=== PATIENT | female | born 1955 | race Caucasian/White ===

== ENCOUNTER 2020-06-01 07:48 | Outpatient (CLI) | payer OTHER, SELFPAY ==
--- NOTE | ~2020-06-01 | DEXA_ITS ---
Bone Density Report Name: Aminata Sotelo Age: 65 Sex: Female Ethnicity: White Date of : 1955 Indication: postmenopausal; parental hip fracture; height loss; Referring Provider: ANGELINA, BARRIE Study: Bone densitometry was performed. Exam Date: June 01, 2020 Accession number: [id number] Bone Density: Region BMD T-score Z-score Classification AP Spine (L1-L4) 0.975 -0.7 1.0 Normal Femoral Neck (Left) 0.641 -1.9 -0.5 Osteopenia Total Hip (Left) 0.775 -1.4 -0.3 Osteopenia Total Hip Bilateral Avg 0.767 -1.5 -0.4 Osteopenia Femoral Neck (Right) 0.683 -1.5 -0.1 Osteopenia Total Hip (Right) 0.759 -1.5 -0.4 Osteopenia World Health Organization criteria for BMD impression classify patients as: Normal (T-score at or above -1.0), Osteopenia (T-score between -1.0 and -2.5), or Osteoporosis (T-score at or below -2.5). 10-year Fracture Risk(1): Major Osteoporotic Fracture 15% Hip Fracture 1.1% Reported Risk Factors: [place] (), Neck BMD=0.641, BMI=18.2, parental fracture (1) FRAX(R) Version 3.08. Fracture probability calculated for an untreated patient. Fracture probability may be lower if the patient has received treatment. Previous Exams: Region Exam Age BMD T-score BMD Change BMD Change Date g/cm2 vs Baseline vs Previous AP Spine(L1-L4) 06/01/2020 65 0.975 -0.7 -0.117(-10.7%) -0.013(-1.3%) 03/03/2017 61 0.989 -0.5 -0.103(-9.5%)# -0.034(-3.3%)# 06/07/2014 59 1.022 -0.2 -0.069(-6.4%)# -0.069(-6.4%)# 02/06/2011 55 1.092 0.4 Total Hip(Left) 06/01/2020 65 0.775 -1.4 -0.090(-10.4%) -0.040(-4.9%)* 03/03/2017 61 0.815 -1.0 -0.050(-5.7%)# -0.015(-1.8%)# 06/07/2014 59 0.830 -0.9 -0.034(-4.0%)# -0.034(-4.0%)# 02/06/2011 55 0.864 -0.6 Total Hip(Right) 06/01/2020 65 0.759 -1.5 -0.119(-13.6%) -0.063(-7.7%)* 03/03/2017 61 0.823 -1.0 -0.056(-6.4%)# 0.008(0.9%)# 06/07/2014 59 0.815 -1.0 -0.063(-7.2%)# -0.063(-7.2%)# 02/06/2011 55 0.878 -0.5 *Denotes significance at 95% confidence level, LSC for AP Spine = 0.022 g/cm2, LSC for Total Hip = 0.027 g/cm2 Clinical Information Provided by Patient: Parent has had a hip fracture Has used the following medications: Vitamin D, Calcium Patient maximum height was 70 Menopause Age: 57 No regular weight bearing exercise Onset of menses at age 16 Number of children 3 Impression: The patient has low bone mass, based on the Left
--- NOTE | ~2020-06-01 | MM_ITS ---
EXAMINATION: MM screening gaetano BI w nitin HISTORY: Screening mammogram, family history of breast cancer in her mother and sister. TECHNIQUE: Craniocaudal and mediolateral oblique 3-D tomosynthesis images were obtained and synthetic 2-D images were generated. CAD analysis was submitted and interpreted. COMPARISON: 12/29/2018, 03/03/2017, 07/18/2015, 07/10/2015 BREAST PARENCHYMAL COMPOSITION: There are scattered areas of fibroglandular density. FINDINGS: There is no evidence of suspicious mass, calcification, or architectural distortion to sugg est malignancy in either breast. There has been no suspicious interval change. IMPRESSION: 1. No mammographic evidence of malignancy. 2. Recommend routine screening mammography in one year. BI-RADS Category 1: Negative Reviewed, dictated and finalized at location A.
== END 2020-06-01 07:49 | disposition home or self-care (01) ==
LOC: ANHIMG 07:50
PROVIDERS: PCP Internal Medicine; Visit Provider Nurse Practitioner
DX: Z12.31 Encounter for screening mammogram for malignant neoplasm of breast (principal); M85.88 Other specified disorders of bone density and structure, other site; M85.852 Other specified disorders of bone density and structure, left thigh; M85.851 Other specified disorders of bone density and structure, right thigh
CPT/HCPCS: 77063; 77067; 77080

== ENCOUNTER 2021-04-13 09:01 | Emergency (ER) | payer OTHER, SELFPAY ==
--- NOTE | 2021-04-13 09:10 | ED.FEMALEGU ---
HPI - Female Genitourinary General Chief complaint: Urogenital-Female Stated complaint: UTI Time Seen by Provider: 04/13/21 09:05 Source: patient and RN notes reviewed Limitations: no limitations History of Present Illness HPI Narrative: The patient, previously mostly healthy, presents with a shorter couple day history of urinary dysuria, and urgency. No fever, frequency, hematuria; symptoms are mild; worse with micturition like prior urinary tract infection [not irritable bladder that she has had before], unrelieved with OTC preparations like Azo. Patient advised to see prior urologist [Dr. Quesada]] , if no improvement. Related Data Home Medications Medication Instructions Recorded Confirmed diazepam 10 mg PO DIRECTED 04/13/21 04/13/21 estradiol 0.1 appful VAGINAL DIRECTED 04/13/21 04/13/21 estradiol [Imvexxy Maintenance 10 mcg VAGINAL DIRECTED 04/13/21 04/13/21 Pack] raloxifene 60 mg PO DIRECTED 04/13/21 04/13/21 Allergies Allergy/AdvReac Type Severity Reaction Status Date / Time Sulfa (Sulfonamide Allergy Unknown Rash Verified 04/13/21 09:08 Antibiotics) BANDAID AdvReac Unknown ITCHING, Uncoded 02/12/18 13:06 RASH Review of Systems Review of Systems: Narrative: General/Constitutional: No weight loss,fever Eyes: N0: Redness,discharge Ears/Nose/Throat: No: Epistaxis,ear discharge Respiratory: Denies: Hemoptysis Gastrointestinal: No Vomiting, Bleeding-rectal Skin: No Lumps, eruption Neurologic: No Focal Weakness,Sz Hematologic: Denies: Petechiae/Purpura Psychiatric: No: Suicida ideationl All Other Systems: Reviewed and Negative [facility] Family History Family History (Updated 06/13/16 @ 23:19 by DOCTOR UNKNOWN) Sibling Family history of malignant neoplasm of breast in first degree relative, Onset Age: 53 Mother Family history of malignant neoplasm of breast in first degree relative, Onset Age: 64 Grandparent Family history of throat cancer, Onset Age: 90 Social History Social History Smoking status: Never smoker Alcohol intake: current Comments At time of signature, agree with nursing past medical, surgical, social and family history. There is no relevant family history pertinent to the presenting complaint Exam Narrative: Exam Narrative: General Appearance: Well appearing, Conjunctiva clear Ears: External ear normal Nose: Normal nose Mouth/Throat: Normal appearing, Normal lips, Supple Respiratory: Airway patent, No respiratory distress Abdomen: Soft, Non-tender, No massess, No organomegaly (no rebound/ surgical signs), Musculoskeletal: Full ROM Skin: Warm, Dry Neurological: A&O x3, Normal affect Course Vital Signs Vital signs: Vital Signs Temperature 97.5 F L 04/13/21 09:13 Pulse Rate 72 04/13/21 09:13 Respiratory Rate 16 04/13/21 09:13 Blood Pressure 139/57 L 04/13/21 09:13 Pulse Oximetry 99 04/13/21 09:13 Temperature 97.5 F L 04/13/21 09:13 Pulse Rate 72 04/13/21 09:13 Respiratory Rate 16 04/13/21 09:13 Blood Pressure 139/57 L 04/13/21 09:13 Pulse Oximetry 99 04/13/21 09:13 MDM - Female Genitourinary Lab Data Labs: Urine Glucose Negative Reference Range: Negative Urine Bilirubin Negative Reference Range: Negative Urine Ketone Negative Reference Range: Negative Urine Specific Orient 1.020 Reference Range:1.001-1.035 Urine Blood Negative Reference Range: Negative * * Urine pH 6.0 Reference Range: 5.0-9.0 Urine Protein Negative
[2021-04-13 09:13] VITALS: BP 139/57; PULSE 72; RESP 16; TEMP 36.4; O2SAT 99
== END 2021-04-13 09:31 | disposition home or self-care (01) ==
PROVIDERS: Emergency Provider Emergency Medicine; PCP Internal Medicine
DX: N30.00 Acute cystitis without hematuria (principal)
CPT/HCPCS: 81003; 87086; 87186; 99213; G0463

== ENCOUNTER 2021-06-03 07:30 | Outpatient (CLI) | payer BC, SELFPAY ==
--- NOTE | ~2021-06-03 | MM_ITS ---
EXAMINATION: MM screening gaetano BI w nitin HISTORY: Screening TECHNIQUE: Craniocaudal and mediolateral oblique 3-D tomosynthesis images were obtained and synthetic 2-D images were generated. CAD analysis was submitted and interpreted. COMPARISON: Comparison to multiple prior studies sequentially, with oldest reviewed study dated 06/07. BREAST PARENCHYMAL COMPOSITION: There are scattered areas of fibroglandular density. FINDINGS: There is no evidence of suspicious mass, calcification, or architectural distortion to sugg est malignancy in either breast. There has been no suspicious interval change. IMPRESSION: 1. No mammographic evidence of malignancy. 2. Recommend routine screening mammography in one year. BI-RADS Category 1: Negative Reviewed, dictated and finalized at location A.
== END 2021-06-03 07:31 | disposition home or self-care (01) ==
LOC: ANHIMG 07:31
PROVIDERS: PCP Internal Medicine; Visit Provider Nurse Practitioner
DX: Z12.31 Encounter for screening mammogram for malignant neoplasm of breast (principal)
CPT/HCPCS: 77063; 77067

== ENCOUNTER 2022-08-26 15:08 | Outpatient (CLI) | payer MEDICARE, SELFPAY ==
--- NOTE | ~2022-08-26 | DEXA_ITS ---
Bone Density Report Name: SARAI MORLEY Age: 67 Sex: Female Ethnicity: White Date of : 1955 Indication: osteopenia; height loss; postmenopausal Referring Provider: RONALDO, DANDRE Study: Bone densitometry was performed. Exam Date: August 26, 2022 Accession number: [id number] Bone Density: Region BMD T-score Z-score Classification AP Spine(L1-L4) 0.983 -0.6 1.2 Normal Femoral Neck (Left) 0.636 -1.9 -0.4 Osteopenia Total Hip (Left) 0.748 -1.6 -0.4 Osteopenia Femoral Neck (Right) 0.664 -1.7 -0.1 Osteopenia Total Hip (Right) 0.754 -1.5 -0.3 Osteopenia Total Hip Mean 0.751 -1.6 -0.4 Osteopenia World Health Organization criteria for BMD impression classify patients as: Normal (T-score at or above -1.0), Osteopenia (T-score between -1.0 and -2.5), or Osteoporosis (T-score at or below -2.5). 10-year Fracture Risk(1): Major Osteoporotic Fracture 9.2% Hip Fracture 1.4% Reported Risk Factors: [place] (), Neck BMD=0.636, BMI=20.2 (1) FRAX(R) Version 3.08. Fracture probability calculated for an untreated patient. Fracture probability may be lower if the patient has received treatment. Previous Exams: Region Exam Age BMD T-score BMD Change BMD Change Date g/cm2 vs Baseline vs Previous AP Spine (L1-L4) 08/26/2022 67 0.983 -0.6 -0.040 (-3.9%) 0.008 (0.8%) 06/01/2020 65 0.975 -0.7 -0.047 (-4.6%) -0.013 (-1.3%) 03/03/2017 61 0.989 -0.5 -0.034 (-3.3%) -0.034 (-3.3%) 06/07/2014 59 1.022 -0.2 Total Hip(Left) 08/26/2022 67 0.748 -1.6 -0.082 (-9.9%) -0.027 (-3.4%) 06/01/2020 65 0.775 -1.4 -0.055 (-6.7%) -0.040 (-4.9%) 03/03/2017 61 0.815 -1.0 -0.015 (-1.8%) -0.015 (-1.8%) 06/07/2014 59 0.830 -0.9 Total Hip(Right) 08/26/2022 67 0.754 -1.5 -0.061 (-7.5%) -0.005 (-0.7%) 06/01/2020 65 0.759 -1.5 -0.056 (-6.8%) -0.063 (-7.7%) 03/03/2017 61 0.823 -1.0 0.008 (0.9%)# 0.008 (0.9%)# 06/07/2014 59 0.815 -1.0 *Denotes significance at 95% confidence level, LSC for AP Spine = 0.022 g/cm2, LSC for Total Hip = 0.027 g/cm2 # Denotes dissimilar scan types or analysis methods Clinical Information Provided by Patient: Has used the following medications: Vitamin D Patient maximum height was 70 Drinks caffeinated beverages Onset of menses at age 15 Number of children 3 Impression: The patient has low bone mass, based on the Left Femoral Neck T-score.
--- NOTE | ~2022-08-26 | MM_ITS ---
EXAMINATION: MM screening gaetano BI w nitin HISTORY: Screening TECHNIQUE: Craniocaudal and mediolateral oblique 3-D tomosynthesis images were obtained and synthetic 2-D images were generated. CAD analysis was submitted and interpreted. COMPARISON: Comparison to multiple prior studies sequentially, with oldest reviewed study dated 07/10. BREAST PARENCHYMAL COMPOSITION: Breast composed of scattered areas of fibroglandular density FINDINGS: There is no evidence of suspicious mass, calcification, or architectural distortion to sugg est malignancy in either breast. There has been no suspicious interval change. IMPRESSION: 1. No mammographic evidence of malignancy. 2. Recommend routine screening mammography in one year. BI-RADS Category 1: Negative Reviewed, dictated and finalized at location A.
== END 2022-08-26 15:09 | disposition home or self-care (01) ==
PROVIDERS: PCP Internal Medicine; Visit Provider Nurse Practitioner
DX: Z12.31 Encounter for screening mammogram for malignant neoplasm of breast (principal); M85.88 Other specified disorders of bone density and structure, other site; M85.852 Other specified disorders of bone density and structure, left thigh; M85.851 Other specified disorders of bone density and structure, right thigh
CPT/HCPCS: 77063; 77067; 77080

== ENCOUNTER 2022-09-01 12:52 | Outpatient (CLI) | payer MEDICARE, SELFPAY | END 2022-09-01 12:53 | disposition home or self-care (01) | LOC: ANHAUDASC 12:54 | PROVIDERS: PCP Internal Medicine; Visit Provider Internal Medicine | DX: H90.3 Sensorineural hearing loss, bilateral (principal) | CPT/HCPCS: 92557; 92567 ==

== ENCOUNTER 2022-10-28 13:33 | Inpatient (IN) | payer MEDICARE, SELFPAY ==
--- NOTE | ~2022-10-28 | XR_ITS ---
EXAMINATION: XR finger 4th RT min 2V INDICATION: Increased swelling and redness of the right fourth finger TECHNIQUE: Three views of the right fourth finger are obtained. COMPARISON: 10/29/2022 FINDINGS: Bone alignment is normal. There is no fracture. Again noted is severe erosive osteoarthriti s at the fourth distal interphalangeal joint. There is surrounding soft tissue swelling without signi ficant change. Moderate to severe erosive osteoarthritis is also seen at the fifth distal interphalan geal joint. IMPRESSION: 1. Erosive osteoarthritis, severe at the fourth distal interphalangeal joint and moderate to severe a t the fifth distal interphalangeal joint, without significant change. Reviewed, dictated and finalized at location A. 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 Erosive osteoarthritis, severe at the fourth distal interphalangeal joint an d moderate to severe at the fifth distal interphalangeal joint, without signifi cant change.
--- NOTE | ~2022-10-28 | MR_ITS ---
EXAMINATION: MR hand RT wo/w con DATE: 10/31/2022 07:21 INDICATION: Infection at the fourth distal interphalangeal joint. TECHNIQUE: Magnetic resonance imaging (MRI) of the right hand was performed without and with 13 mL Mu ltihance intravenous contrast. Sequences included axial T1-weighted FSE, axial T2-weighted FS FSE, co master T1-weighted FSE, coronal T2-weighted FS FSE, sagittal T1-weighted FSE and sagittal T2-weighted FS FSE. Precontrast axial T1-weighted FS FSE and post contrast sagittal T1-weighted FS FSE were also obtained. There is a technical error the scanner resulting in the study being halted prior to obtaini ng the axial and coronal postcontrast images and also resulting in poor fat saturation on the sagitta l postcontrast images. COMPARISON: None. FINDINGS: Bone alignment is normal. No fracture. Severe erosive osteoarthritis at the fourth and fifth distal i nterphalangeal joints with typical central erosions with gullwing configuration at the base of the fo urth and fifth distal phalanges. Additional mild osteoarthritis at the remaining interphalangeal join ts. There is focal subcutaneous edema and soft tissue swelling dorsal to the fourth distal interphala ngeal joint, superficial to the extensor digitorum longus tendon and its distal phalangeal insertion. No evident soft tissue swelling deep to the fingernail. No abscess. No evident loss of the low signa l intensity corticated margins to the bones or loss of T1 marrow fat signal to suggest osteomyelitis. No joint effusion to suggest a septic arthritis. The flexor and extensor tendons including the exten sor digitorum longus tendon to the fourth digit remain normal. This scan is the collateral ligament c omplex at the metacarpophalangeal and interphalangeal joints remain normal. IMPRESSION: 1. Nonspecific subcutaneous soft tissue swelling dorsal to the fourth distal interphalangeal joint wh ich remain superficial to the normal-appearing extensor digitorum longus tendon to the fourth digit w ithout evident abscess, joint effusion to suggest septic arthritis or marrow signal changes to sugges t ostomy myelitis. 2. Severe erosive osteoarthritis at the fourth and fifth distal interphalangeal joints. Reviewed, dictated and finalized at location A. [facility] IMPRESSION: 1. Nonspecific subcutaneous soft tissue swelling dorsal to the fourth distal in terphalangeal joint which remain superficial to the normal-appearing extensor d igitorum longus tendon to the fourth digit without evident abscess, joint effus ion to suggest septic arthritis or marrow signal changes to suggest ostomy myel itis. 2. Severe erosive osteoarthritis at the fourth and fifth distal interphalangeal joints.
--- NOTE | ~2022-10-28 | XR_ITS ---
EXAMINATION: XR finger 4th RT min 2V DATE: 10/28/2022 14:52 INDICATION: Nontraumatic pain at the right fourth distal phalanx TECHNIQUE: Dorsal palmar, lateral and 2 oblique views of the right fourth digit were obtained COMPARISON: None FINDINGS: Diffuse osteopenia. Bone alignment is normal. No fracture. Severe osteoarthritis with central erosion s consistent with erosive osteoarthritis at the fourth distal interphalangeal joint and also suggeste d at the suboptimally profiled fifth distal interphalangeal joint. Moderate osteoarthritis at the thi rd-fifth proximal interphalangeal and third distal interphalangeal joints. Mild osteoarthritis at the first and fourth metacarpophalangeal joints. Mild periarticular soft tissue swelling most prominent at the fourth distal interphalangeal joint. IMPRESSION: 1. Severe erosive osteoarthritis at the fourth distal interphalangeal joint also suggested at the fif th distal interphalangeal joint. Reviewed, dictated and finalized at location A. 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 Severe erosive osteoarthritis at the fourth distal interphalangeal joint als o suggested at the fifth distal interphalangeal joint.
[2022-10-28 13:39] VITALS: BP 144/58; PULSE 80; RESP 20; TEMP 36.7; O2SAT 97
--- NOTE | 2022-10-28 14:47 | ED.WOUNDLAC ---
HPI - Wound/Laceration General Chief Complaint: Wound/Laceration <Tania Del Toro PA-C - Last Filed: 10/28/22 17:48> Stated Complaint: right ring finger infection <OLIVERIO Sanchez Last Filed: 10/28/22 17:48> Time Seen by Provider: 10/28/22 13:56 <OLIVERIO Sanchez Last Filed: 10/28/22 17:48> Source: patient <OLIVERIO Sanchez Last Filed: 10/28/22 17:48> Mode of arrival: ambulatory <OLIVERIO Sanchez Last Filed: 10/28/22 17:48> Limitations: no limitations <OLIVERIO Sanchez Last Filed: 10/28/22 17:48> History of Present Illness HPI narrative: This is a 67 year old female that presents to the ER for right 4th finger redness and swelling ongoing over the last 2 days. Reports she was seen by her agency sales representative last week and had a lesion frozen on that finger. Reports starting 2 days ago she started to note redness and swelling of the finger. The pain makes it difficult for range of motion in the finger. She was seen again by her agency sales representative yesterday and started on doxycycline with little relief. Denies fevers. <OLIVERIO Sanchez Last Filed: 10/28/22 17:48> Related Data Home Medications: Home Medications Medication Instructions Recorded Confirmed albuterol sulfate 90 mcg/actuation 2 puff inhalation Q4H PRN 06/20/22 10/28/22 aerosol inhaler (Ventolin HFA) Shortness Of Breath metoprolol succinate 25 mg 25 mg PO DAILY 06/20/22 10/28/22 tablet,extended release 24 hr (Toprol XL) venlafaxine 37.5 mg 37.5 mg PO DAILY 10/28/22 10/28/22 capsule,extended release 24 hr (Effexor XR) <OLIVERIO Sanchez Last Filed: 10/28/22 17:48> Allergies/Adverse Reactions: Allergies Allergy/AdvReac Type Severity Reaction Status Date / Time Sulfa (Sulfonamide Allergy Unknown Rash Verified 10/28/22 13:33 Antibiotics) BANDAID AdvReac Unknown ITCHING, Uncoded 10/28/22 13:33 RASH <Tania Del Toro PA-C - Last Filed: 10/28/22 17:48> Review of Systems Review of Systems: CONSTITUTIONAL: Denies fever SKIN: Reports redness and swelling MUSCULOSKELETAL: Reports joint pain, and myalgia. NEUROLOGIC: Denies numbness <Tania Del Toro PA-C - Last Filed: 10/28/22 17:48> All systems reviewed & are unremarkable except as noted in HPI and below <Tania Del Toro PA-C - Last Filed: 10/28/22 17:48> [facility], [facility] Past Medical History Medical History: Medical History (Updated 10/28/22 @ 22:24 by Ilsa Siu PA-C) Anxiety Arthritis Osteopenia Paroxysmal supraventricular tachycardia <Tania Del Toro PA-C - Last Filed: 10/28/22 17:48> Surgical History Surgical History: Surgical History (Updated 10/28/22 @ 22:19 by Ilsa Siu PA-C) History of colonoscopy with polypectomy History of inguinal hernia repair <Tania Del Toro PA-C - Last Filed: 10/28/22 17:48> Family History Family History: Family History Sibling Family history of malignant neoplasm of breast in first degree relative, Onset Age: 53 Mother Family history of malignant neoplasm of breast in first degree relative, Onset Age: 64 Grandparent Family history of throat cancer, Onset Age: 90 <Tania Del Toro PA-C - Last Filed: 10/28/22 17:48> Social History Social History: Social History (Updated 10/28/22 @ 22:20 by Ilsa Siu PA-C) Social History: Surrogate medical decision maker: Anneliese Sotelo, spouse. Code status: Full code. Smoking status: Never smoker Alcohol intake: never Substance use: never Lack of Transportation: No Lack of Food: Never True Current Housing: I Have Housing Concerned About Future Housing: No Difficulty Paying Gas/Electric Bills: No Difficulty Paying for Meds: No Currently Unemployed: No Education: Master's Degree or Higher Difficulty w/ Childcare or Family Care: No Spiritual care concerns: No <Tania Hickey
[2022-10-28] MEDS: HYDROcodone/acetaminophen (*CRX) 5-325 MG TABLET 1 TAB PO ×2 (14:57→22:32)
[2022-10-28 15:31] LABS: Basophils Percent Auto 0.2 % (0.2-1.2); Eosinophils Percent Auto 0.2 % (0-4.4); Hematocrit 41.4 % (37.0-47.0); Hemoglobin 14.1 g/dL (12.0-15.0); Immature Granulocyte Absolute 0.03 K/mm3 (0.00-0.031); Immature Granulocyte Percent A 0.3 % (0-0.5); Lymphocytes Absolute Auto 1.62 K/mm3 (0.9-3.2); Lymphocytes Percent Auto 14.6 % (18.3-44.2); Mean Corpuscular HGB Conc 34.1 g/dl (32-36); Mean Corpuscular Hemoglobin 30.5 pg (26-34); Mean Corpuscular Volume 89.4 fl (80-100); Mean Platelet Volume 9.1 fl (7.4-10.4); Monocytes Absolute Auto 0.8 K/mm3 (0.1-0.6); Monocytes Percent Auto 7.1 % (2.6-8.5); Neutrophils Absolute Auto 8.6 K/mm3 (1.3-6.7); Neutrophils Percent Auto 77.6 % (45.5-73.1); Platelet Count Result 220 k/mm3 (150-375); Red Blood Count 4.63 M/mm3 (4.2-5.4); Red Cell Distribution Width 12.3 % (11.5-14.5); White Blood Count 11.1 K/mm3 (4.5-10.0)
[2022-10-28 15:41] LABS: Anion Gap 7 mmol/L (8-16); Blood Urea Nitrogen 17 mg/dL (7-17); CRP 3.3 mg/dL (<1.0); Calcium 8.9 mg/dL (8.4-10.2); Carbon Dioxide 26 mmol/L (22-30); Chloride 107 mmol/L (98-107); Estimated CRCL calculation 77 ml/min; Estimated Glomerular Filt Rate > 60; Glucose 102 mg/dL (65-110); Potassium 4.1 mmol/L (3.4-5.0); Sodium 140 mmol/L (137-145)
[2022-10-28 16:41] LABS: Erythrocyte Sedimentation Rate 21 mm/hr (0-20)
[2022-10-28 17:03] LABS: Influenza A QL RT-PCR Negative (Negative); Influenza B QL RT-PCR Negative (Negative); SARS-CoV-2 RNA PCR Negative
[2022-10-28] MEDS: KETOROLAC 15 MG/ML VIAL (*BKC) IV PUSH (18:00)
--- NOTE | 2022-10-28 18:45 | PM.IMHP ---
H&P: HPI History of Present Illness Date/Time: 10/28/22 18:45 Chief Complaint: Redness and swelling to right 4th finger. Narrative: This is a very pleasant 67-year-old female who presented to the emergency department for evaluation redness and swelling of the right 4th finger. She saw her front desk assistant last week and had a lesion frozen on that finger which they thought was the start of a wart. Several days ago she noticed some redness and some swelling at the site which has gotten progressively worse. She saw her front desk assistant yesterday and was prescribed doxycycline. Despite taking 3 doses her symptoms have not improved and worsened. She slept poorly last night due to throbbing pain in that finger. She denies fever, chills, sweats, nausea, and vomiting. No known history of MRSA infection. No paresthesias or temperature changes of that finger. X-ray showed severe erosive osteoarthritis and prominent swelling at the 4th distal interphalangeal joint (currently seeing a paper steamer for possible inflammatory arthritis, lupus, or other autoimmune disease). The wound was lanced and a small amount of purulent drainage was expressed and was sent for culture. She is being admitted for IV antibiotics. Review of Systems Review of Systems: Twelve systems were reviewed and are negative except for as per HPI. [facility] Past Medical History Medical History (Updated 10/28/22 @ 22:24 by Ilsa Siu PA-C) Anxiety Arthritis Osteopenia Paroxysmal supraventricular tachycardia Surgical History Surgical History (Updated 10/28/22 @ 22:19 by Ilsa Siu PA-C) History of colonoscopy with polypectomy History of inguinal hernia repair Family History Family History Sibling Family history of malignant neoplasm of breast in first degree relative, Onset Age: 53 Mother Family history of malignant neoplasm of breast in first degree relative, Onset Age: 64 Grandparent Family history of throat cancer, Onset Age: 90 Social History Social History (Updated 10/28/22 @ 22:20 by Ilsa Siu PA-C) Social History: Surrogate medical decision maker: Anneliese Sotelo, spouse. Code status: Full code. Smoking status: Never smoker Alcohol intake: never Substance use: never Lack of Transportation: No Lack of Food: Never True Current Housing: I Have Housing Concerned About Future Housing: No Difficulty Paying Gas/Electric Bills: No Difficulty Paying for Meds: No Currently Unemployed: No Education: Master's Degree or Higher Difficulty w/ Childcare or Family Care: No Spiritual care concerns: No Meds Home Medications and Allergies Home Medications Medication Instructions Recorded Confirmed Type albuterol sulfate 90 mcg/actuation 2 puff inhalation Q4H PRN 06/20/22 10/28/22 History aerosol inhaler (Ventolin HFA) Shortness Of Breath metoprolol succinate 25 mg 25 mg PO DAILY 06/20/22 10/28/22 History tablet,extended release 24 hr (Toprol XL) venlafaxine 37.5 mg 37.5 mg PO DAILY 10/28/22 10/28/22 History capsule,extended release 24 hr (Effexor XR) Allergies Allergy/AdvReac Type Severity Reaction Status Date / Time Sulfa (Sulfonamide Allergy Unknown Rash Verified 10/28/22 13:33 Antibiotics) BANDAID AdvReac Unknown ITCHING, Uncoded 10/28/22 13:33 RASH Vital Signs Vital Signs - 24 hr 10/28/22 13:39 Temperature 98.0 F Pulse Rate 80 Respiratory Rate 20 Blood Pressure 144/58 H Pulse Oximetry 97 Oxygen Delivery Room Air Exam Const: Other: Well-developed, nontoxic-appearing female sitting up in bed. Weight: 61.6 kilograms. BMI: 20.6. HENMT: Other: Normocephalic, atraumatic. Nares patent. Oral mucosa moist. Eyes: Other: Pupils are reactive. Extraocular motions intact. Sclerae anicteric. Neck: Other: Supple. Resp: Other: Respirations are nonlabored. Lungs are clear to auscultation. Ca
[2022-10-28 19:23] VITALS: BP 140/71; PULSE 77; RESP 20; O2SAT 98
--- NOTE | 2022-10-28 20:31 | PC.NURSE ---
2030-REPORT TO LIANG CUI. OK TO SEND PATIENT TO FLOOR.
[2022-10-28 21:01] LABS: Estimated CRCL calculation 77 ml/min; Estimated Glomerular Filt Rate > 60
[2022-10-28 21:07] VITALS: BP 136/48; PULSE 72; RESP 18; TEMP 36.4; O2SAT 97; BMI 20.6
[2022-10-28 21:24] VITALS: BMI 20.6
--- NOTE | 2022-10-28 21:37 | ADMGEN ---
This patient, Aminata Sotelo, was admitted to Medical Room 348-01. Patient/family oriented to hospital policies and general routines including ID bracelet, bed and alarms, visiting hours, pain management, procedures, bathroom and other care routines, personal items, smoking policy, room service/diet, and visiting hours. Information on how to activate the Rapid Response Team has been discussed. Patient/Family are encouraged to report perceived risks to care and to ask questions if they do not understand what they are told or what they should do.
[2022-10-28 21:49] VITALS: PULSE 72; RESP 18; O2SAT 97
[2022-10-28] MEDS: IBUPROFEN 600 MG TABLET PO (22:31)
[2022-10-29 04:23] VITALS: BP 116/48; PULSE 66; RESP 16; TEMP 36.2; O2SAT 98
[2022-10-29] MEDS: HYDROcodone/acetaminophen (*CRX) 5-325 MG TABLET 1 TAB PO ×2 (04:44→22:26)
[2022-10-29 05:48] LABS: Hematocrit 38.8 % (37.0-47.0); Hemoglobin 13.1 g/dL (12.0-15.0); Mean Corpuscular HGB Conc 33.8 g/dl (32-36); Mean Corpuscular Hemoglobin 30.5 pg (26-34); Mean Corpuscular Volume 90.2 fl (80-100); Mean Platelet Volume 8.9 fl (7.4-10.4); Platelet Count Result 184 k/mm3 (150-375); Red Cell Distribution Width 12.3 % (11.5-14.5); White Blood Count 8.3 K/mm3 (4.5-10.0)
[2022-10-29 06:02] LABS: Anion Gap 3 mmol/L (8-16); Blood Urea Nitrogen 13 mg/dL (7-17); Calcium 8.3 mg/dL (8.4-10.2); Carbon Dioxide 28 mmol/L (22-30); Chloride 104 mmol/L (98-107); Estimated CRCL calculation 91 ml/min; Estimated Glomerular Filt Rate > 60; Glucose 104 mg/dL (65-110); Potassium 3.9 mmol/L (3.4-5.0); Sodium 135 mmol/L (137-145)
[2022-10-29] MEDS: ACETAMINOPHEN 325 MG TABLET 650 MG PO ×2 (06:53→16:31)
[2022-10-29 09:57] VITALS: PULSE 66
[2022-10-29] MEDS: VENLAFAXINE HCL XR 37.5 MG CAP PO (09:57)
[2022-10-29] MEDS: METOPROLOL SUCCINATE EXT REL 25 MG TABCR PO (09:57)
--- NOTE | 2022-10-29 11:10 | PM.IMPN ---
Progress Note: A&P Assessment and Plan (1) Cellulitis of right ring finger: Code(s): L03.011 - Cellulitis of right finger Status: Acute Assessment and Plan: Patient presented to the emergency department with complaints of right 4th digit redness swelling and pain. Patient had previously been seen by the capacity analyst and had nitric oxide treatment for possible wart. Following this she developed symptoms as above. She was started on doxycycline outpatient however symptoms continued to worsen. Continue IV cefazolin and vancomycin for purulent cellulitis. Small purulent lesion drained with mucopurulent discharge cultured. ED wound culture pending, but preliminary result shows gram positive cocci. Continue analgesics as needed. Trial PRN IV toradol Warm compresses to assist with pus drainage and inflammation. Elevate right hand for swelling improvement Finger x-ray demonstrates severe erosive osteoarthritis. Trial NSAIDs (2) Paroxysmal supraventricular tachycardia: Code(s): I47.1 - Supraventricular tachycardia Status: Chronic Assessment and Plan: Chronic, stable. Continue metoprolol at home dose. (3) Anxiety: Code(s): F41.9 - Anxiety disorder, unspecified Status: Chronic Assessment and Plan: Chronic, stable. Continue venlafaxine at home does Plan Code status: Full code Disposition: Inpatient, med surg discharge plan: Home when medically stable for discharge and cellulitis improved Time Spent With Patient Time with patient: 25 - 35 minutes Subjective Date/time seen: 10/29/22 11:10 She complains of right 4th digit severe pain, throbbing, redness and swelling. She does not think it is improved at all since admission.. Acetaminophen has been somewhat helpful however [facility] has provided minimal pain relief. She does report elevating her right hand to help with swelling. No paresthesia. Review of Systems Review of Systems: All systems reviewed & are unremarkable except as noted in HPI and below Exam Narrative: General: No acute distress.? Well-developed and well-groomed?adult female sitting up in bed. Mental Status/Psych: Awake, alert and oriented x4 with clear speech. Neutral mood and affect. Pleasant and cooperative. Skin: Warm and dry. Right hand 4th digit DIP with moderate your edema and edema. Very tender to palpation anterior lateral border with circular raised lesion fluctuant with mucopurulent discharge noted. HEENT: Normocephalic. Sclera is non-icteric. Pupils equal and round. Grossly normal hearing. Oral mucosa moist. Tongue midline. Neck: Supple. No JVD. Heart: S1 and S2 regular rate and rhythm. No murmurs, gallops, or rubs auscultated. Chest: Respirations even and unlabored. Lung sounds are clear to auscultation in all lobes bilaterally without wheezes, rhonchi, or rales. Abdomen: Soft, round and non-tender to palpation.? Bowel sounds present in all 4 quadrants. Extremities:? Grossly normal ROM all extremities. No lower extremity edema. Radial and dorsalis pedis pulses +2 bilaterally. Neurological: No focal deficits. Cranial nerves 2-12 grossly intact.? Objective Data Vital Signs Vital Signs: Vital Signs - 24 hr 10/28/22 13:39 10/28/22 19:23 10/28/22 21:07 Temperature 98.0 F 97.5 F L Pulse Rate 80 77 72 Respiratory Rate 20 20 18 Blood Pressure 144/58 H 140/71 136/48 L Pulse Oximetry 97 98 97 Oxygen Delivery Room Air 10/28/22 21:49 10/29/22 04:23 10/29/22 09:57 Temperature 97.1 F L Pulse Rate 72 66 66 Respiratory Rate 18 16 Blood Pressure 116/48 L Pulse Oximetry 97 98 Oxygen Delivery Room Air Intake/Output Intake/Output: Intake & Output 10/26/22 10/27/22 10/28/22 10/29/22 23:59 23:59 23:59 23:59 Intake Total 250 760 Output Total 350 Balance 250 410 Meds/Results Medications: Active Medications Generic Name Dose Route Start Last Admin Trade Name Freq PRN Reason Stop Dose Admin Acetamino
[2022-10-29] MEDS: KETOROLAC 30 MG/ML VIAL (*BKC) IV PUSH (11:15)
[2022-10-29 14:00] VITALS: BP 108/60; PULSE 70; RESP 16; TEMP 36.1; O2SAT 96
[2022-10-29 20:00] VITALS: PULSE 67; RESP 18; O2SAT 98
[2022-10-29 20:29] VITALS: BP 115/45; PULSE 67; RESP 18; TEMP 36.2; O2SAT 98
[2022-10-29] MEDS: MORPHINE SULFATE (*CRX) 2 MG/ML INJ IV PUSH (23:14)
--- NOTE | 2022-10-30 02:56 | PC.NURSE ---
Pt called nurse into room c/o severe pain Rt fourth finger. Dressing removed and finger red and swollen with liao skin noted on top of knuckle. Hospitalist called and received order for repeat x ray. Warm pack applied and when pushing on finger krause pus oozed from top of finger. Less swelliing noted after this finger elevated and warm k pad applied.
[2022-10-30 04:25] VITALS: BP 129/51; PULSE 64; RESP 19; TEMP 36.6; O2SAT 98
[2022-10-30] MEDS: HYDROcodone/acetaminophen (*CRX) 5-325 MG TABLET 1 TAB PO (04:47)
[2022-10-30 06:34] LABS: Basophils Percent Auto 0.2 % (0.2-1.2); Hematocrit 38.6 % (37.0-47.0); Hemoglobin 12.7 g/dL (12.0-15.0); Immature Granulocyte Absolute 0.03 K/mm3 (0.00-0.031); Immature Granulocyte Percent A 0.4 % (0-0.5); Lymphocytes Absolute Auto 1.65 K/mm3 (0.9-3.2); Lymphocytes Percent Auto 20.4 % (18.3-44.2); Mean Corpuscular HGB Conc 32.9 g/dl (32-36); Mean Corpuscular Hemoglobin 29.3 pg (26-34); Mean Corpuscular Volume 89.1 fl (80-100); Mean Platelet Volume 8.6 fl (7.4-10.4); Monocytes Absolute Auto 0.7 K/mm3 (0.1-0.6); Neutrophils Absolute Auto 5.7 K/mm3 (1.3-6.7); Platelet Count Result 211 k/mm3 (150-375); Red Blood Count 4.33 M/mm3 (4.2-5.4); Red Cell Distribution Width 11.9 % (11.5-14.5); White Blood Count 8.1 K/mm3 (4.5-10.0)
[2022-10-30 06:42] LABS: Estimated CRCL calculation 80 ml/min; Estimated Glomerular Filt Rate > 60
--- NOTE | 2022-10-30 07:59 | PM.IMPN ---
Progress Note: A&P Assessment and Plan (1) Cellulitis of right ring finger: Code(s): L03.011 - Cellulitis of right finger Status: Acute Assessment and Plan: Patient presented to the emergency department with complaints of right 4th digit redness swelling and pain. Patient had previously been seen by the railroad surveyor and had nitric oxide treatment for possible wart. Following this she developed symptoms as above. She was started on doxycycline outpatient however symptoms continued to worsen. Continue IV cefazolin and vancomycin for purulent cellulitis, started 10/28/22 ED wound culture preliminary result shows staph aureus with sensitivities pending Continue analgesics as needed. PRN IV toradol Warm compresses to assist with pus drainage and inflammation. Elevate right hand for swelling improvement Finger x-ray demonstrates severe erosive osteoarthritis and soft tissue swelling Check MRI w/contrast to rule out septic joint. (2) Paroxysmal supraventricular tachycardia: Code(s): I47.1 - Supraventricular tachycardia Status: Chronic Assessment and Plan: Chronic, stable. Continue metoprolol at home dose. (3) Anxiety: Code(s): F41.9 - Anxiety disorder, unspecified Status: Chronic Assessment and Plan: Chronic, stable. Continue venlafaxine at home does Plan Code status: Full code Disposition: Inpatient, med surg discharge plan: Home when medically stable for discharge and cellulitis improved Time Spent With Patient Time with patient: 15 - 25 minutes Subjective Date/time seen: 10/30/22 07:59 She had severe pain to her fourth finger overnight. The purulent lesion had to be drained again and she had some relieve. K-pad is helping as well. She is concerned about the joint and possible infection. Review of Systems Review of Systems: All systems reviewed & are unremarkable except as noted in HPI and below Exam Narrative: General: No acute distress.? Non-toxic appearing. sitting up in bed. Mental Status/Psych: Awake, alert and oriented x4 with clear speech. Neutral mood and affect. Skin: Warm and dry. Right hand 4th digit DIP with dull erythema, normothermic, firm lateral borders, circular, raised lesion anterior surface with clear/serosanguineous discharge noted. tender to palpation anteriorly. HEENT: Sclera is non-icteric. Pupils equal and round. Oral mucosa moist. Neck: No JVD. Heart: S1 and S2 regular rate and rhythm. No murmurs, gallops, or rubs auscultated. Chest: Respirations even and unlabored. Lung sounds are clear to auscultation in all lobes bilaterally without wheezes, rhonchi, or rales. Abdomen: Soft, round and non-tender to palpation.? Bowel sounds present in all 4 quadrants. Extremities:? Grossly normal ROM all extremities. No lower extremity edema. Radial and dorsalis pedis pulses +2 bilaterally. Neurological: No focal deficits. Cranial nerves 2-12 grossly intact.? Objective Data Vital Signs Vital Signs: Vital Signs - 24 hr 10/29/22 09:57 10/29/22 09:30 10/29/22 14:00 Temperature 97.0 F L Pulse Rate 66 70 Respiratory Rate 16 Blood Pressure 108/60 Pulse Oximetry 96 Oxygen Delivery Room Air 10/29/22 20:29 10/29/22 20:00 10/30/22 04:25 Temperature 97.1 F L 97.8 F Pulse Rate 67 67 64 Respiratory Rate 18 18 19 Blood Pressure 115/45 L 129/51 L Pulse Oximetry 98 98 98 Oxygen Delivery Room Air Intake/Output Intake/Output: Intake & Output 10/27/22 10/28/22 10/29/22 10/30/22 23:59 23:59 23:59 23:59 Intake Total 250 3390 400 Output Total 1775 1600 Balance 250 1615 -1200 Meds/Results Medications: Active Medications Generic Name Dose Route Start Last Admin Trade Name Freq PRN Reason Stop Dose Admin Acetaminophen 650 mg 10/28/22 22:03 10/29/22 16:31 Acetaminophen 325 Mg Tablet PO 650 mg Q6H PRN Administration Mild Pain (1-3) or Fever Hydrocodone Bitart/Acetaminophen 1 tab 10/28/22
[2022-10-30 10:07] VITALS: PULSE 110
[2022-10-30] MEDS: METOPROLOL SUCCINATE EXT REL 25 MG TABCR PO (10:07)
[2022-10-30] MEDS: VENLAFAXINE HCL XR 37.5 MG CAP PO (10:08)
[2022-10-30] MEDS: KETOROLAC 30 MG/ML VIAL (*BKC) IV PUSH (10:21)
[2022-10-30 14:00] VITALS: BP 130/56; PULSE 76; RESP 18; TEMP 35.8; O2SAT 96
[2022-10-30 20:00] VITALS: PULSE 76; RESP 18; O2SAT 96
[2022-10-30 20:40] LABS: Vancomycin Trough 11.5 ug/mL (10.0-20.0)
[2022-10-30 22:00] VITALS: BP 128/62; PULSE 69; RESP 18; TEMP 36.6; O2SAT 96
[2022-10-31] MEDS: HYDROcodone/acetaminophen (*CRX) 5-325 MG TABLET 1 TAB PO (02:49)
[2022-10-31 06:00] VITALS: BP 122/62; PULSE 66; RESP 18; TEMP 36.6; O2SAT 100
[2022-10-31 06:07] LABS: Basophils Percent Auto 0.3 % (0.2-1.2); Hematocrit 38.2 % (37.0-47.0); Hemoglobin 12.8 g/dL (12.0-15.0); Immature Granulocyte Absolute 0.03 K/mm3 (0.00-0.031); Immature Granulocyte Percent A 0.5 % (0-0.5); Lymphocytes Absolute Auto 1.87 K/mm3 (0.9-3.2); Lymphocytes Percent Auto 28.9 % (18.3-44.2); Mean Corpuscular HGB Conc 33.5 g/dl (32-36); Mean Corpuscular Hemoglobin 30.3 pg (26-34); Mean Corpuscular Volume 90.3 fl (80-100); Mean Platelet Volume 8.7 fl (7.4-10.4); Monocytes Absolute Auto 0.5 K/mm3 (0.1-0.6); Neutrophils Percent Auto 62.3 % (45.5-73.1); Platelet Count Result 209 k/mm3 (150-375); Red Blood Count 4.23 M/mm3 (4.2-5.4); White Blood Count 6.5 K/mm3 (4.5-10.0)
[2022-10-31 06:32] LABS: Anion Gap 3 mmol/L (8-16); Blood Urea Nitrogen 14 mg/dL (7-17); Calcium 8.4 mg/dL (8.4-10.2); Carbon Dioxide 27 mmol/L (22-30); Chloride 106 mmol/L (98-107); Estimated CRCL calculation 94 ml/min; Estimated Glomerular Filt Rate > 60; Glucose 101 mg/dL (65-110); Potassium 4.2 mmol/L (3.4-5.0); Sodium 136 mmol/L (137-145)
[2022-10-31] MEDS: VENLAFAXINE HCL XR 37.5 MG CAP PO (08:16)
[2022-10-31 08:18] VITALS: PULSE 68
[2022-10-31] MEDS: METOPROLOL SUCCINATE EXT REL 25 MG TABCR PO (08:18)
[2022-10-31] MEDS: KETOROLAC 30 MG/ML VIAL (*BKC) IV PUSH (08:19)
[2022-10-31] MEDS: ACETAMINOPHEN 325 MG TABLET 650 MG PO (13:07)
[2022-10-31 14:26] VITALS: BP 130/50; PULSE 75; RESP 18; TEMP 36.8; O2SAT 98
--- NOTE | 2022-10-31 16:51 | PM.DS ---
DS: Admitting Diagnosis Discharge Date 10/31/2022 165 Admitting Diagnosis Cellulitis of right ring finger h/o paroxysmal SVT Anxiety DS: Discharge Diagnosis Discharge Diagnosis (1) Cellulitis of right ring finger: Code(s): L03.011 - Cellulitis of right finger Status: Acute Assessment and Plan: Patient presented to the emergency department with complaints of right 4th digit redness swelling and pain. Patient had previously been seen by the immigration investigator and had nitric oxide treatment for possible wart. Following this she developed symptoms of pain, redness and swelling. She was started on doxycycline outpatient however symptoms continued to worsen. Treated with IV cefazolin and vancomycin for purulent cellulitis, started 10/28/22 ED wound culture showed MSSA and vancomycin was stopped. Purulent pustule at the anterior surface was noted and drained at the bedside. Continued analgesics as needed. PRN IV toradol Warm compresses to assist with pus drainage and inflammation. Elevated right hand for swelling improvement Finger x-ray demonstrates severe erosive osteoarthritis and soft tissue swelling MRI w/contrast was negative for abscess, osteomyelitis, or joint effusion suggesting septic arthritis. (2) Paroxysmal supraventricular tachycardia: Code(s): I47.1 - Supraventricular tachycardia Status: Chronic Assessment and Plan: Chronic, stable. Continued metoprolol at home dose. (3) Anxiety: Code(s): F41.9 - Anxiety disorder, unspecified Status: Chronic Assessment and Plan: Chronic, stable. Continued venlafaxine at home does (4) Arthritis: Code(s): M19.90 - Unspecified osteoarthritis, unspecified site Status: Chronic Assessment and Plan: Erosive arthritis per imaging. On meloxicam. DS: Summary Hospital Course Reason for hospitalization: Redness & swelling right 4th finger Hospital Course: Aminata Sotelo is a 67-year-old female who presented to the emergency department for evaluation redness and swelling of the right 4th finger. She saw her immigration investigator the previous week and had a lesion frozen on her 4th finger for possible wart. Several days prior to admission, she noticed increasing redness and swelling at the site which progressively worsened. She saw her immigration investigator the day before admission and was prescribed doxycycline. Despite taking 3 doses her symptoms continued to worsen. She was unable to sleep due to throbbing pain in that finger. She denied fever, chills, sweats, nausea, and vomiting.? No known history of MRSA infection. No paresthesias or temperature changes of that finger. X-ray showed severe erosive osteoarthritis and prominent swelling at the 4th distal interphalangeal joint (currently seeing a feed house supervisor for possible inflammatory arthritis, lupus, or other autoimmune disease). The wound was lanced and a small amount of purulent drainage was expressed and was sent for culture. She was admitted to the medical floor for treatment with IV antibiotics. She was treated with Ancef 1 gram Q8 hours and Vancomycin IV pharmacy dosed. She continued to have severe pain and was treated with PO norco, IV toradol and IV morphine. On 10/29, fluctuant and purulent discharged was noted anteriorly but not drainable. The superficial pustule was pricked with a 24 gauge needle and moderate amount of mucopurulent discharge was expressed and sent for culture. K-pad warm heat was used to assist with evacuation of purulent material. The pain and swelling was slow to resolve on IV antibiotic, therefore MRI was obtained to rule out abscess or septic joint. MRI was negative for this. She reported improvement of symptoms and showed clinical improvement. MSSA wound culture was sensitive to doxycycline. She was discharged home in stable condition, afebrile and instructed to complete the 25 remaining tablets of doxycyline for purulent cellulitis. Status at Discharge
== END 2022-10-31 17:45 | disposition home or self-care (01) | DRG 603 ==
LOC: ANHED 17:37 → ANH3MEDSUR 19:39 → ANH3MED 20:20
PROVIDERS: Physician Assistant; Admitting Provider Internal Medicine; Emergency Provider Emergency Medicine; PCP Internal Medicine; Visit Provider Nurse Practitioner Family
DX: L03.011 Cellulitis of right finger (principal); I47.1 Supraventricular tachycardia; A49.01 Methicillin susceptible Staphylococcus aureus infection, unspecified site; F41.9 Anxiety disorder, unspecified; M19.90 Unspecified osteoarthritis, unspecified site; M85.80 Other specified disorders of bone density and structure, unspecified site
CPT/HCPCS: 10060; 36415; 73140; 73220; 80048; 80202; 82565; 85025; 85027; 85652; 86140; 87070; 87147; 87181; 87186; 87205; 87636; 96365; 96367; 96375; 96376; 99285; A9270; A9577; G0378; J0690; J1885; J2270; J3370

== ENCOUNTER 2023-05-20 08:09 | Emergency (ER) | payer MEDICARE, SELFPAY ==
[2023-05-20 08:19] VITALS: BP 117/45; PULSE 66; RESP 16; TEMP 36.4; O2SAT 98
--- NOTE | 2023-05-20 08:26 | ED.FEMALEGU ---
HPI - Female Genitourinary General Chief complaint: Urogenital-Female Stated complaint: Female Urogenital Time Seen by Provider: 05/20/23 08:26 Source: patient and RN notes reviewed Mode of arrival: ambulatory Limitations: no limitations History of Present Illness HPI Narrative: 68 y/o female presented for c/o burning with urination for 3 days, worsening yesterday. Endorses history of UTI's and has followed with urology. Currently rates bladder pain 4/10, was worse this morning prior to urinating. Reports cloudy dark urine. Took AZO yesterday. Denies urgency, incontinence, hematuria, abdominal pain, flank pain, n/v/d/f/c. Related Data Home Medications Medication Instructions Recorded Confirmed metoprolol succinate 25 mg 25 mg PO DAILY 06/20/22 05/20/23 tablet,extended release 24 hr (Toprol XL) meloxicam 7.5 mg tablet 15 mg PO DAILY 11/12/22 05/20/23 estradiol 10 mcg vaginal tablet 10 mcg vaginal DAILY 05/20/23 05/20/23 Allergies Allergy/AdvReac Type Severity Reaction Status Date / Time Sulfa (Sulfonamide AdvReac Mild Rash Verified 05/20/23 08:12 Antibiotics) BANDAID AdvReac Mild ITCHING, Uncoded 05/20/23 08:12 RASH Review of Systems Review of Systems: CONSTITUTIONAL: Denies body aches, fever, chills, or sweats. CARDIOVASCULAR: Denies chest pain, palpitations, or edema. RESPIRATORY: Denies cough or dyspnea. GASTROINTESTINAL: Denies abdominal pain, nausea, vomiting, or diarrhea. GENITOURINARY: Reports dysuria, frequency, denies urgency, hematuria, flank pain SKIN: Denies rash, itching, or wounds. MUSCULOSKELETAL: Denies back pain or myalgia. [facility] Past Medical History Medical History Anxiety Arthritis Bilateral vitreous detachment Elevated LDL cholesterol level Osteopenia Paroxysmal supraventricular tachycardia Positive AGUSTINA (antinuclear antibody) positive SCL-[address] Quesada Vitamin B12 deficiency Surgical History Surgical History History of colonoscopy with polypectomy History of inguinal hernia repair Family History Family History Sibling Family history of malignant neoplasm of breast in first degree relative, Onset Age: 53 Mother Family history of malignant neoplasm of breast in first degree relative, Onset Age: 64 Grandparent Family history of throat cancer, Onset Age: 90 Social History Social History Social History: Surrogate medical decision maker: Anneliese Sotelo, spouse. Code status: Full code. Smoking status: Never smoker Alcohol intake: never Drinks per week: 7 Substance use: never Substance use type: does not use Lack of Transportation: No Lack of Food: Never True Current Housing: I Have Housing Concerned About Future Housing: No Difficulty Paying Gas/Electric Bills: No Difficulty Paying for Meds: No Currently Unemployed: No Education: Master's Degree or Higher Difficulty w/ Childcare or Family Care: No Living arrangements: with family Occupation/Education: occupation Gender identity (if verbalized by the patient): Female Sexual Orientation (if Verbalized by the Patient): Straight or Heterosexual Spiritual care concerns: No Comments At time of signature, I have reviewed and agree with nursing past medical, surgical, social and family history unless otherwise noted. Please see nursing chart for further information. There is no relevant family history pertinent to the presenting complaint Exam Narrative: GENERAL: Well-appearing and in no acute distress. HEAD: Normocephalic EYES: EOMI. . ENT: Mucous membranes pink and moist. NECK: Normal AROM. Supple. CHEST: No respiratory distress. Clear to auscultation. HEART: Regular rate and rhythm. ABDOMEN: Soft, nontender, nondisten
== END 2023-05-20 08:39 | disposition home or self-care (01) ==
PROVIDERS: Emergency Provider Nurse Practitioner Family; PCP Family Medicine
DX: N39.0 Urinary tract infection, site not specified (principal); M19.90 Unspecified osteoarthritis, unspecified site; M85.80 Other specified disorders of bone density and structure, unspecified site
CPT/HCPCS: 81003; 87077; 87086; 87186; 99213; G0463

== ENCOUNTER 2023-09-22 07:24 | Outpatient (CLI) | payer MEDICARE, SELFPAY ==
--- NOTE | ~2023-09-22 | MM_ITS ---
EXAMINATION: MM screening gaetano BI w nitin HISTORY: Screening TECHNIQUE: Craniocaudal and mediolateral oblique 3-D tomosynthesis images were obtained and synthetic 2-D images were generated. CAD analysis was submitted and interpreted. COMPARISON: Comparison to multiple prior studies sequentially, with oldest reviewed study dated 03/03. BREAST PARENCHYMAL COMPOSITION: There are scattered areas of fibroglandular density. FINDINGS: There is no evidence of suspicious mass, calcification, or architectural distortion to sugg est malignancy in either breast. There has been no suspicious interval change. IMPRESSION: 1. No mammographic evidence of malignancy. 2. Recommend routine screening mammography in one year. BI-RADS Category 1: Negative Reviewed, dictated and finalized at location A. IT ASSISTANT
== END 2023-09-22 07:25 | disposition home or self-care (01) ==
LOC: ANHIMG 07:26
PROVIDERS: PCP Family Medicine; Visit Provider Obstetrics & Gynecology Gynecology
DX: Z12.31 Encounter for screening mammogram for malignant neoplasm of breast (principal)
CPT/HCPCS: 77063; 77067

== ENCOUNTER 2024-05-18 10:43 | Outpatient (CLI) | payer MEDICARE, SELFPAY ==
--- NOTE | ~2024-05-18 | US_ITS ---
US transvaginal Ordering provider: Abbey Weinstein, HAIR MACHINE OPERATOR History: . Pelvic pain . Comparison: June 21, 2005 Technique: Transabdominal and endovaginal ultrasound of the pelvis (Doppler ultrasound interrogation techniques used as needed for this exam.) FINDINGS: CERVIX: Normal. Calcification the cervix. UTERUS: Measures 5.2x 2.8x 4.2 cm in length which is within normal limits and is anteverted. No myom etrial masses. ENDOMETRIUM: Normal in thickness measuring 2.3 mm. CUL DE SAC: No free fluid. RIGHT OVARY: Not visualized. LEFT OVARY: Not visualized. ADNEXA: Normal. No mass. IMPRESSION: Minimal calcification the cervix. Otherwise, normal pelvic ultrasound. Reviewed, dictated and finalized at location A.
== END 2024-05-18 10:44 ==
PROVIDERS: PCP Nurse Practitioner; Visit Provider Nurse Practitioner
DX: R10.2 Pelvic and perineal pain (principal)
CPT/HCPCS: 76830

== ENCOUNTER 2024-10-24 12:50 | Outpatient (CLI) | payer MEDICARE, SELFPAY ==
--- NOTE | ~2024-10-24 | DEXA_ITS ---
Bone Density Report Name: SARAI MORLEY Age: 69 Sex: Female Ethnicity: White Date of : 1955 Indication: osteopenia; height loss; Referring Provider: ANGELINA, BARRIE Study: Bone densitometry was performed. Exam Date: October 24, 2024 Accession number: [id number] Bone Density: Region BMD T-score Z-score Classification AP Spine(L1-L4) 0.995 -0.5 1.5 Normal Femoral Neck (Left) 0.634 -1.9 -0.3 Osteopenia Total Hip (Left) 0.758 -1.5 -0.1 Osteopenia Femoral Neck (Right) 0.654 -1.8 -0.1 Osteopenia Total Hip (Right) 0.759 -1.5 -0.1 Osteopenia Total Hip Mean 0.759 -1.5 -0.1 Osteopenia World Health Organization criteria for BMD impression classify patients as: Normal (T-score at or above -1.0), Osteopenia (T-score between -1.0 and -2.5), or Osteoporosis (T-score at or below -2.5). 10-year Fracture Risk(1): Major Osteoporotic Fracture 9.8% Hip Fracture 1.7% Reported Risk Factors: [place] (), Neck BMD=0.634, BMI=20.7 (1) FRAX(R) Version 3.08. Fracture probability calculated for an untreated patient. Fracture probability may be lower if the patient has received treatment. Previous Exams: Region Exam Age BMD T-score BMD Change BMD Change Date g/cm2 vs Baseline vs Previous AP Spine (L1-L4) 10/24/2024 69 0.995 -0.5 -0.027 (-2.7%) 0.013 (1.3%) 08/26/2022 67 0.983 -0.6 -0.040 (-3.9%) 0.008 (0.8%) 06/01/2020 65 0.975 -0.7 -0.047 (-4.6%) -0.013 (-1.3%) 03/03/2017 61 0.989 -0.5 -0.034 (-3.3%) -0.034 (-3.3%) 06/07/2014 59 1.022 -0.2 Total Hip(Left) 10/24/2024 69 0.758 -1.5 -0.072 (-8.7%) 0.010 (1.3%) 08/26/2022 67 0.748 -1.6 -0.082 (-9.9%) -0.027 (-3.4%) 06/01/2020 65 0.775 -1.4 -0.055 (-6.7%) -0.040 (-4.9%) 03/03/2017 61 0.815 -1.0 -0.015 (-1.8%) -0.015 (-1.8%) 06/07/2014 59 0.830 -0.9 Total Hip(Right) 10/24/2024 69 0.759 -1.5 -0.056 (-6.8%) 0.005 (0.7%) 08/26/2022 67 0.754 -1.5 -0.061 (-7.5%) -0.005 (-0.7%) 06/01/2020 65 0.759 -1.5 -0.056 (-6.8%) -0.063 (-7.7%) 03/03/2017 61 0.823 -1.0 0.008 (0.9%)# 0.008 (0.9%)# 06/07/2014 59 0.815 -1.0 *Denotes significance at 95% confidence level, LSC for AP Spine = 0.022 g/cm2, LSC for Total Hip = 0.027 g/cm2 # Denotes dissimilar scan types or analysis methods Clinical Information Provided by Patient: Has used the following medications: Vitamin D Patient maximum height was 70 Drinks caffeinated beverages Onset of menses at age 16 Number of children 3 Impression: The patient has low bone mass, based on the Left Femoral Neck T-score. The patient has an estimated ten-year risk of hip fracture of 1.7% and an estimated ten-year risk of major fracture of 9.8%, based on the WHO FRAX algorithm. No significant bone loss was observed. Discussion: BONE DENSITY IS LOW AT ONE OR MORE SKELETAL SITES. This patient's lowest T-score is low at one or more skeletal sites. It meets the World Health Organization's (WHO) criteria for ?low bone mass? (T-score between -1.0 and -2.5). The patient's 10-year risk of fracture as calculated by FRAX is less than the threshold where pharmacological therapy is recommended by the National Osteoporosis Foundation (NOF). However, all treatment decisions require clinical judgment and consideration of individual patient factors, including patient preferences, comorbidities, previous drug use, risk factors not captured in the FRAX model (e.g., frailty, falls, vitamin D deficiency, increased bone turnover, interval significant decline in bone density) and possible under or overestimation of fracture risk by FRAX. The patient should follow a healthful lifestyle (good nutrition with adequate calcium and vitamin D, and appropriate weight-bearing exercise). Follow-Up: Consider repeating this study in 2 to 3 years to reassess this patient's status, or sooner if there is some new clinical indication. Reported by: KENDRICK on 10/24/2024 1:32:00 PM. Reviewed, dictated and finalized at location AShai SAEZ
== END 2024-10-24 12:51 | disposition home or self-care (01) ==
LOC: ANHIMG 12:53
PROVIDERS: PCP Nurse Practitioner Family; Visit Provider Nurse Practitioner
DX: M85.89 Other specified disorders of bone density and structure, multiple sites (principal)
CPT/HCPCS: 77080